=== PATIENT | female | born 1985 | race African-American/Black ===

== ENCOUNTER 2018-11-18 13:52 | Outpatient (CLI) | payer OTHER ==
[2018-11-18 21:06] VITALS: BP 132/85; PULSE 98; RESP 16; TEMP 98.1
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
== END 2018-11-18 16:40 | disposition home or self-care (01) ==
LOC: FBPOP 13:52
PROVIDERS: ATTEND Obstetrics & Gynecology
DX: O26.893 Other specified pregnancy related conditions, third trimester (principal); Z3A.37 37 weeks gestation of pregnancy
CPT/HCPCS: 59025; G0463; 99213

== ENCOUNTER 2018-11-30 07:51 | Inpatient (IN) | payer OTHER ==
[2018-11-25 14:42] VITALS: BMI 58.1
[2018-11-30 08:07] LABS: Glucose,Whole Blood 84 mg/dL (75-99)
[2018-11-30] MEDS ORDERED: CITRIC ACID-SODIUM CITRATE 15 ML CUP PO ONE (08:11)
[2018-11-30] MEDS ORDERED: LACTATED RINGERS 1,000 ML IV ONE (08:11)
[2018-11-30] MEDS ORDERED: CLINDAMYCIN 900 MG in DEXTROSE 5% IN WATER 50 ML IVPB STA ×2 (08:22)
[2018-11-30 08:38] LABS: Basophils # (A) 0.1 k/uL (0-0.2); Basophils % (A) 1 %; Eosinophils # (A) 0.2 k/uL (0-0.7); Eosinophils % (A) 2 %; HCT 36.3 % (34.0-46.0); HGB 12.3 gm/dL (11.4-16.0); Lymphocytes # (A) 1.2 k/uL (1.0-4.8); Lymphocytes % (A) 13 %; MCH 29.1 pg (25.0-35.0); MCV 85.5 fL (80.0-100.0); Mean Platelet Volume 9.1; Monocytes # (A) 0.4 k/uL (0-1.0); Monocytes % (A) 4 %; Neutrophils # (A) 7.8 k/uL (1.3-7.7); Neutrophils % (A) 81 %; Platelet Count 207 k/uL (150-450); RBC 4.25 m/uL (3.80-5.40); RDW 15.3 % (11.5-15.5); WBC 9.6 k/uL (3.8-10.6)
[2018-11-30] MEDS ORDERED: NALBUPHINE 10 MG/ML (1 ML AMP) ONE (10:38)
[2018-11-30] MEDS ORDERED: ONDANSETRON 4 MG/2 ML VIAL ONE (10:38)
[2018-11-30] MEDS ORDERED: OXYTOCIN 10 UNIT/ML 1 ML VIAL ONE (10:38)
[2018-11-30] MEDS ORDERED: MORPHINE SULFATE (PF) 0.3 MG/0.3 ML SYR ONE (10:38)
[2018-11-30] MEDS ORDERED: LANOLIN CREAM 5 GM TUBE TOPICAL PRN (12:09)
[2018-11-30] MEDS ORDERED: KETOROLAC 30 MG/ML 1 ML VIAL IVP PRN (12:09)
[2018-11-30] MEDS ORDERED: diphenhydrAMINE 25 MG CAP PO PRN (12:09)
[2018-11-30] MEDS ORDERED: diphenhydrAMINE 50 MG CAP PO PRN (12:09)
[2018-11-30] MEDS ORDERED: ZOLPIDEM 5 MG TAB PO PRN (12:09)
[2018-11-30] MEDS ORDERED: NALOXONE 0.4 MG/ML 1 ML VIAL IV PRN (12:09)
[2018-11-30] MEDS ORDERED: ONDANSETRON 4 MG/2 ML VIAL IVP PRN (12:09)
[2018-11-30] MEDS ORDERED: ACETAMINOPHEN TAB 325 MG TAB PO PRN (12:09)
[2018-11-30] MEDS ORDERED: METOCLOPRAMIDE 5 MG/ML 2 ML VIAL IVP PRN (12:09)
[2018-11-30] MEDS ORDERED: diphenhydrAMINE 50 MG/ML 1 ML VIAL IVP PRN (12:09)
[2018-11-30] MEDS ORDERED: HYDROcodone/APAP 7.5-325MG 1 EACH TAB PO PRN (12:09)
[2018-11-30] MEDS ORDERED: HYDROcodone/APAP 5-325MG 1 EACH TAB PO PRN (12:09)
[2018-11-30] MEDS ORDERED: OXYTOCIN 20 UNITS/1000 ML NS 1,000 ML IV SCH (12:15)
--- NOTE | 2018-11-30 12:18 | P.HPOB ---
History of Present Illness H&P Date: 11/30/18 Chief Complaint: 39+ weeks, previous , IDDM, macrosomia The patient is a 33-year-old 4 para 3003 with 2 previous term vaginal deliveries followed by a delivery for unstable lie resulting in breech presentation during labor having been vertex early in the process. During this and all of her other pregnancies, she has been insulin-dependent with diabetes. She reported good sugar control but, when her sugar logs were actually examined, was found to have fairly irregular to poor control at best. testing has been reassuring throughout the . She underwent growth ultrasound at approximately 35-36 weeks at which time the estimated weight was approximately 4100 g. Given the patient's morbid obesity as well as insulin-dependent diabetes and suspected pedal macrosomia all along with a history of previous section, the recommendation was made to proceed with repeat section to which the patient agreed. Group B strep status is positive. On labor and delivery, all signs reassuring. Obstetrical history: 4 para 3003 with 2 term vaginal deliveries followed by a term section. All pregnancies have been complicated by diabetes. Current statistics are listed in history present illness. EDC of 12/07/2018 was established by 9 week ultrasound. Laboratory workup demonstrates a blood type of O+ with a negative antibody screen. Rubella status is immune. Remainder of laboratory workup was within normal limits. The patient is a known diabetic and did not therefore undergoing any diabetic testing. Group B strep status is positive. Gynecologic history: Unremarkable with no history of any infections to include STDs. Review of Systems Review of systems is confined to history of present illness. Past Medical History Past Medical History: Asthma, Diabetes Mellitus, Thyroid Disorder History of Any Multi-Drug Resistant Organisms: None Reported Past Surgical History: Section Additional Past Surgical History / Comment(s): BMT CHILD Past Anesthesia/Blood Transfusion Reactions: No Reported Reaction Past Psychological History: Anxiety, Depression Smoking Status: Never smoker Past Alcohol Use History: None Reported Past Drug Use History: None Reported - Past Family History Mother Family Medical History: Cancer Medications and Allergies Home Medications Medication Instructions Recorded Confirmed Type Levothyroxine Sodium [Synthroid] 25 mcg PO DAILY 10/10/15 11/30/18 History Pnv,Calcium 72/Iron/Folic Acid 1 tab PO DAILY 10/10/15 11/30/18 History [ Plus Tablet] Albuterol Sulfate [Proair Hfa] 2 puff INHALATION DAILY PRN 11/25/18 11/25/18 H istory Calcium Carbonate/Vitamin D3 1 each PO DAILY 11/25/18 11/30/18 History [Calcium 500-Vit D3 600 Tablet] Insulin Glargine,Hum.rec.anlog 40 unit SQ HS 11/25/18 11/30/18 History [Basaglar Kwikpen U-100] Insulin Lispro [Admelog] 100 unit SQ Q4H PRN MDD TO SCALE 11/25/18 11/30/18 Hi story Loratadine [Claritin] 10 mg PO DAILY 11/25/18 11/30/18 History Sertraline [Zoloft] 200 mg PO DAILY 11/25/18 11/30/18 History Stool Softener 1 each PO DAILY 11/25/18 History Allergies Allergy/AdvReac Type Severity Reaction Status Date / Time amoxicillin Allergy Itching Verified 11/30/18 08:07 Penicillins Allergy Itching Verified 11/30/18 08:07 Sulfa (Sulfonamide Allergy Swelling Verified 11/30/18 08:07 Antibiotics) lactose AdvReac Nausea & Verified 11/30/18 08:07 Vomiting & Diarrhea steri strips AdvReac Itching Uncoded 11/30/18 08:07 Exam Vital Signs Temp Pulse Resp BP Pulse Ox 11/30/18 12:01 83 16 133/74 98 11/30/18 11:46 96.8 F L 91 16 133/74 98 So 33-year-old 4 para 3003 morbidly obese woman in no acute distress. Her heart has a regular rhythm and rate without murmur. Her lungs are clear to auscultation bilaterally in all werner. Her abdomen is obese, gravid, has normal active bowel sounds, soft, nontender, without any palpable masses aside from uterine fundus. Her extremities are without any cyanosis, clubbing, or edema and are nontender to palpation bilaterally. Digital cervical examination is deferred. Results Result Diagrams: 11/30/18 08:10 Abnormal Lab Results - Last 24 Hours (Table) 11/30/18 Range/Units 08:10 Neutrophils # 7.8 H (1.3-7.7) k/uL Assessment and Plan (1) Term Current Visit: Yes Status: Acute Code(s): Z34.90 - ENCNTR FOR SUPRVSN OF NORMAL , UNSP, UNSP TRIMESTER SNOMED Code(s): 49850721 (2) Previous section Current Visit: Yes Status: Acute Code(s): Z98.891 - HISTORY OF UTERINE SCAR FROM PREVIOUS SURGERY SNOMED Code(s): 714089260 (3) macrosomia in Current Visit: Yes Status: Acute Code(s): O36.60X0 - MATERNAL CARE FOR EXCESS GROWTH, UNSP TRIMESTER, UNSP SNOMED Code(s): 33528944 (4) Insulin dependent diabetes mellitus Current Visit: Yes Status: Acute Code(s): E11.9 - TYPE 2 DIABETES MELLITUS WITHOUT COMPLICATIONS SNOMED Code(s): 09410083 Plan: Given all the risk factors and the estimated weight at 36 weeks of perhaps as much as 4100 g, the decision was made to proceed to the operating room for repeat low transverse section. Risks and complications the procedure been thoroughly discussed and she has agreed to proceed.
--- NOTE | 2018-11-30 12:25 | P.OP ---
Date of Procedure: 11/30/18 Preoperative Diagnosis: #1. 38-6/7 weeks, previous section #2. Insulin dependent diabetes #3. Suspected macrosomia Postoperative Diagnosis: Same Procedure(s) Performed: #1. Repeat low transverse section Anesthesia: spinal Surgeon: Hari George Open Claims Representative #1: Marva Osborne Estimated Blood Loss (ml): 600 IV fluids (ml): 1,800 Urine output (ml): 400 Pathology: other (Placenta) Condition: stable Disposition: floor Operative Findings: The patient's maternal wall thickness was approximately 12-15 cm in depth. There was a fairly significant amount of scarring both through all of the subcutaneous tissues and at the level of the fascia. She was ultimately delivered of a viable 8 lbs. 15 oz. baby boy with Apgars of 8 at 1 minute and 9 at 5 minutes. The placenta was delivered manually, intact, and grossly normal with a grossly normal three-vessel cord. The uterus, tubes, and ovaries were normal to inspection. Description of Procedure: The patient was prepped and draped in usual fashion after spinal anesthesia was administered by the anesthesiologist. A Pfannenstiel incision was made through pre-existing scar and extended into the abdominal cavity with moderate difficulty secondary to both the depth of the incision at approximately 15 cm of maternal abdominal wall depth as well as ongoing scarring through the level of the fascia and rectus muscles. Once the abdomen had been entered, an Narciso self-retaining retractor was placed in standard fashion. The bladder peritoneum was noted to be somewhat elevated and was therefore incised and reflected distally. A 2 cm incision was made in the transverse plane of the lower uterine segment to enter the uterus at which time clear fluid was noted. There was a fairly significant amount fluid as well. The incision was extended in both directions using the bandage scissors. The head was delivered up and through the incision where the nose and mouth were thoroughly suctioned. There was a nuchal cord 2. The fetus was delivered onto the field where the cord was doubly clamped, cut, and the passed resuscitative measures with weight and Apgars as noted above. A segment of cord was doubly clamped, cut, and set aside should cord gases become necessary. The placenta was delivered manually and intact as noted above. The uterus was exteriorized and the interior cavity the uterus swept of any remaining placental or membranous fragments. The margins of the incision were grasped with Walter clamps and the incision closed in 2 layers. The first layer was a running locking stitch of 0 chromic catgut followed by a running imbricating stitch of 0 chromic catgut, each from margin to margin. Hemostasis appeared to be excellent. The posterior cul-de-sac had been suctioned with a guard and the uterine and ovarian findings were normal as noted above. The uterus was replaced in the abdominal cavity and the gutters swept of any remaining blood, fluid, or clot. The incision was reexamined and any small points of bleeding made hemostatic with the Bovie. The layer of muscles was then examined and made hemostatic with the Bovie as well. The fascia was closed with 2 running stitches of 0 Vicryl proceeding from lateral margins to the midpoint. The subcutaneous tissues were irrigated, made hemostatic with the Bovie, and reapproximated with a running stitch of 30 plain catgut. The skin was reapproximated with regular surgical rodrigo. Estimated blood loss for the case was approximately 600 mL. There are no complications aside from the difficulty ascribed by the patient's abdominal habitus and scarring. All sponge, instrument, needle counts were correct. The patient tolerated the procedure well and proceeded to the recovery room in stable co ndition. Both mother and infant are resting comfortably in recovery.
[2018-11-30] MEDS: SENNOSIDES-DOCUSATE SODIUM 1 EACH TAB PO SCH (20:25)
[2018-11-30] MEDS: LACTATED RINGERS 1,000 ML IV SCH (20:48)
[2018-11-30] MEDS: diphenhydrAMINE 50 MG/ML 1 ML VIAL IVP PRN (21:41)
--- NOTE | 2018-12-01 07:01 | P.PN ---
Progress Note - Text Progress Note Date: 12/01/18 Postoperative day 1 status post section under spinal anesthesia, and i ntrathecal morphine given for postoperative analgesia, patient doing well, there is no anesthesia related complications, Patient had no headache, vital signs stable , Assessment and plan= postop day 1 status post , doing well there is no anesthesia related complication.
[2018-12-01 07:16] LABS: Basophils % (A) 0 %; Eosinophils # (A) 0.1 k/uL (0-0.7); Eosinophils % (A) 1 %; HCT 34.7 % (34.0-46.0); HGB 11.7 gm/dL (11.4-16.0); Lymphocytes # (A) 0.7 k/uL (1.0-4.8); Lymphocytes % (A) 7 %; MCH 29.4 pg (25.0-35.0); MCHC 33.9 g/dL (31.0-37.0); MCV 86.9 fL (80.0-100.0); Mean Platelet Volume 9.5; Monocytes # (A) 0.4 k/uL (0-1.0); Monocytes % (A) 4 %; Neutrophils # (A) 8.6 k/uL (1.3-7.7); Neutrophils % (A) 87 %; Platelet Count 175 k/uL (150-450); RBC 3.99 m/uL (3.80-5.40); RDW 15.5 % (11.5-15.5); WBC 9.9 k/uL (3.8-10.6)
[2018-12-01] MEDS: SENNOSIDES-DOCUSATE SODIUM 1 EACH TAB PO SCH ×2 (08:10→20:13)
--- NOTE | 2018-12-01 08:48 | P.PNOBGPC ---
Subjective - Subjective Patient reports: Reports appetite normal, Reports voiding normally, Reports pain well controlled, Reports ambulating normally : doing well Objective - Vital Signs Latest vital signs: Vital Signs Temp Pulse Resp BP Pulse Ox 12/01/18 08:00 98.4 F 100 18 140/87 98 12/01/18 04:00 98 F 105 H 16 125/70 98 12/01/18 00:00 98.2 F 107 H 16 126/70 97 11/30/18 20:00 98 F 102 H 15 128/78 98 11/30/18 16:00 98.5 F 92 18 139/78 98 11/30/18 13:46 97.0 F L 81 16 139/81 98 11/30/18 13:16 87 16 129/69 98 11/30/18 12:46 82 16 132/70 98 11/30/18 12:31 78 16 128/68 98 11/30/18 12:16 75 16 129/72 98 11/30/18 12:01 83 16 132/72 98 11/30/18 11:46 96.8 F L 91 16 133/74 98 Intake and Output 11/30/18 12/01/18 12/01/18 22:59 06:59 14:59 Output Total 600 600 Balance -600 -600 Output: Urine 600 600 Uretheral (Garnica) 400 Other: # Voids 1 2 - Exam Extremities: Present: normal Abdomen: Present: normal appearance, soft. Absent: distention, tenderness Incision: Present: normal, dry, intact Uterus: Present: normal, firm - Labs Labs: Abnormal Lab Results - Last 24 Hours (Table) 12/01/18 Range/Units 06:54 Neutrophils # 8.6 H (1.3-7.7) k/uL Lymphocytes # 0.7 L (1.0-4.8) k/uL Assessment and Plan (1) Term Current Visit: Yes Status: Acute Code(s): Z34.90 - ENCNTR FOR SUPRVSN OF NORMAL , UNSP, UNSP TRIMESTER SNOMED Code(s): 00741446 (2) Previous section Current Visit: Yes Status: Acute Code(s): Z98.891 - HISTORY OF UTERINE SCAR FROM PREVIOUS SURGERY SNOMED Code(s): 581942128 (3) macrosomia in Current Visit: Yes Status: Acute Code(s): O36.60X0 - MATERNAL CARE FOR EXCESS GROWTH, UNSP TRIMESTER, UNSP SNOMED Code(s): 70406705 (4) Insulin dependent diabetes mellitus Current Visit: Yes Status: Acute Code(s): E11.9 - TYPE 2 DIABETES MELLITUS WITHOUT COMPLICATIONS SNOMED Code(s): 86766075 Plan: Continue routine postoperative and care. I have encouraged the patient and we'll in the hallways routinely. She certainly can shower and is already tolerating regular diet. Assuming no complications, the patient will likely be discharged home tomorrow.
[2018-12-01] MEDS: IBUPROFEN 600 MG TAB PO PRN ×2 (11:49→20:12)
[2018-12-01] MEDS: diphenhydrAMINE 50 MG/ML 1 ML VIAL IVP PRN (11:49)
[2018-12-01] MEDS: SIMETHICONE 80 MG CHEWABLE PO PRN (20:25)
--- NOTE | 2018-12-02 07:53 | P.DS ---
Providers Date of admission: 11/30/18 07:51 Expected date of discharge: 12/02/18 Attending physician: aHri George Primary care physician: Jarrett Sanchez - Discharge Diagnosis(es) (1) Term Current Visit: Yes Status: Acute (2) Previous section Current Visit: Yes Status: Acute (3) macrosomia in Current Visit: Yes Status: Acute (4) Insulin dependent diabetes mellitus Current Visit: Yes Status: Acute Hospital Course: The patient is a 33-year-old 4 para 3003 with 2 previous vaginal deliveries followed by section for breech presentation, unstable lie during . She is admitted for repeat low transverse section secondary to insulin dependent diabetes with a history of previous section and macrosomia greater than 99th percentile with estimated weight at approximately 36 weeks of around 4100 g. She was taken the operating room where she underwent repeat low transverse section and was delivered of a viable 8 lbs. 15 oz. baby boy with Apgars of 8 at 1 minute and 9 at 5 minutes. Her postoperative course has been unremarkable with vital signs remained stable and her temperature was afebrile throughout. She was deemed stable for discharge on post operative and day #2. She was discharged home to follow-up in the office in approximately 4-5 days for staple removal, 2 weeks postop for incision check and 6 weeks postoperatively for routine recheck and visit. Discharge instructions included calling for any significantly increased bleeding or foul-smelling lochia, significantly increased fever abdominal pain, perineal complaints, breast complaints, incisional complaints, or anything else that concerned her. She is additionally instructed to have nothing in the vagina for at least 6 weeks time to include intercourse. She understood her instructions and agrees to follow up as noted above. Discharge medications included continued vitamins as she has opted to breast-feed. She additionally was provided with a prescription for [place] 5/325 mg, 1-2 by mouth every 6 hours when necessary pain, #20 dispensed with no refills. She was also intending to take [id number] analgesic pain medications as needed. Maternal blood type is O+ and rubella status is immune. Discharge hemoglobin and hematocrit were 11.7 and 34.7 respectively. Procedures: #1. Repeat low transverse section Patient Condition at Discharge: Stable Plan - Discharge Summary Discharge Rx Participant: No New Discharge Prescriptions: No Action Levothyroxine Sodium [Synthroid] 25 mcg PO DAILY Pnv,Calcium 72/Iron/Folic Acid [ Plus Tablet] 1 tab PO DAILY Sertraline [Zoloft] 200 mg PO DAILY Loratadine [Claritin] 10 mg PO DAILY Stool Softener 1 each PO DAILY Insulin Lispro [Admelog] 100 unit SQ Q4H PRN MDD TO SCALE PRN Reason: HIGH CBG Insulin Glargine,Hum.rec.anlog [Basaglar Kwikpen U-100] 40 unit SQ HS Calcium Carbonate/Vitamin D3 [Calcium 500-Vit D3 600 Tablet] 1 each PO DAILY Albuterol Sulfate [Proair Hfa] 2 puff INHALATION DAILY PRN PRN Reason: Shortness Of Breath Discharge Medication List Levothyroxine Sodium [Synthroid] 25 mcg PO DAILY 10/10/15 [History] Pnv,Calcium 72/Iron/Folic Acid [ Plus Tablet] 1 tab PO DAILY 10/10/15 [History] Albuterol Sulfate [Proair Hfa] 2 puff INHALATION DAILY PRN 11/25/18 [History] Calcium Carbonate/Vitamin D3 [Calcium 500-Vit D3 600 Tablet] 1 each PO DAILY 11/25/18 [History] Insulin Glargine,Hum.rec.anlog [Basaglar Kwikpen U-100] 40 unit SQ HS 11/25/18 [History] Insulin Lispro [Admelog] 100 unit SQ Q4H PRN MDD TO SCALE 11/25/18 [History] Loratadine [Claritin] 10 mg PO DAILY 11/25/18 [History] Sertraline [Zoloft] 200 mg PO DAILY 11/25/18 [History] Stool Softener 1 each PO DAILY 11/25/18 [History] Follow up Appointment(s)/Referral(s): Hari George MD [STAFF PHYSICIAN] - 1 Week Discharge Disposition: HOME SELF-CARE
[2018-12-02] MEDS: SENNOSIDES-DOCUSATE SODIUM 1 EACH TAB PO SCH (08:33)
[2018-12-02] MEDS: SIMETHICONE 80 MG CHEWABLE PO PRN (13:02)
[2018-12-02 18:33] VITALS: BP 146/86; PULSE 110; RESP 18; TEMP 98.7
== END 2018-12-02 18:00 | disposition home or self-care (01) | DRG 786 ==
LOC: 4FBP 07:51
PROVIDERS: ADMIT Obstetrics & Gynecology; ATTEND Obstetrics & Gynecology
PROC: 10D00Z1 Extraction of Products of Conception, Low, Open Approach (ICD-10-PCS; principal; 2018-11-30 10:00)
DX: O36.63X0 Maternal care for excessive fetal growth, third trimester, not applicable or unspecified (principal); O24.12 Pre-existing type 2 diabetes mellitus, in childbirth; O99.214 Obesity complicating childbirth; E66.01 Morbid (severe) obesity due to excess calories; O34.211 Maternal care for low transverse scar from previous cesarean delivery; O99.344 Other mental disorders complicating childbirth; O99.52 Diseases of the respiratory system complicating childbirth; J45.909 Unspecified asthma, uncomplicated; E11.9 Type 2 diabetes mellitus without complications; O99.824 Streptococcus B carrier state complicating childbirth; F32.9 Major depressive disorder, single episode, unspecified; F41.9 Anxiety disorder, unspecified; O99.284 Endocrine, nutritional and metabolic diseases complicating childbirth; O69.81X0 Labor and delivery complicated by cord around neck, without compression, not applicable or unspecified; Z37.0 Single live birth; Z3A.38 38 weeks gestation of pregnancy; Z79.4 Long term (current) use of insulin; Z79.890 Hormone replacement therapy; Z79.899 Other long term (current) drug therapy; Z88.0 Allergy status to penicillin; Z88.2 Allergy status to sulfonamides; Z88.8 Allergy status to other drugs, medicaments and biological substances; Z91.048 Other nonmedicinal substance allergy status
CPT/HCPCS: 83036; 85025; 86850; 86900; 86901; 88307

== ENCOUNTER 2018-12-07 12:21 | Emergency (ER) | payer OTHER ==
[2018-12-07] MEDS ORDERED: SODIUM CHLORIDE 0.9% 2,000 ML IV STA (12:52)
[2018-12-07] MEDS ORDERED: ONDANSETRON 4 MG/2 ML VIAL IVP STA (12:52)
--- NOTE | 2018-12-07 13:03 | ED ---
Nausea/Vomiting/Diarrhea HPI - General Chief complaint: Nausea/Vomiting/Diarrhea Stated complaint: Vomiting-c section on friday11-30-18 Time Seen by Provider: 12/07/18 12:39 Source: patient, RN notes reviewed Mode of arrival: ambulatory Limitations: no limitations - History of Present Illness Initial comments: 33-year-old female presents emergency Department with chief complaint of nausea vomiting diarrhea. Patient states that she has 1 week ago today. Patient states that she was discharged on Friday and since she's had nausea vomiting diarrhea. She states that family members were sick also but they are improved. She states that she does not feel terrible but states that she contacted her ICU STAFF NURSE who recommended her to come emergency from for evaluation. She states her diarrhea was watery she states at this point has s ubsided. Patient denies any known fever, chills, chest pain, headache or dizziness. Patient denies any dysuria hematuria. - Related Data Home Medications Medication Instructions Recorded Confirmed Levothyroxine Sodium [Synthroid] 25 mcg PO DAILY 10/10/15 11/30/18 Pnv,Calcium 72/Iron/Folic Acid 1 tab PO DAILY 10/10/15 11/30/18 [ Plus Tablet] Albuterol Sulfate [Proair Hfa] 2 puff INHALATION DAILY PRN 11/25/18 11/25/18 Calcium Carbonate/Vitamin D3 1 each PO DAILY 11/25/18 11/30/18 [Calcium 500-Vit D3 600 Tablet] Insulin Glargine,Hum.rec.anlog 40 unit SQ HS 11/25/18 11/30/18 [Basaglar Kwikpen U-100] Insulin Lispro [Admelog] 100 unit SQ Q4H PRN MDD TO SCALE 11/25/18 11/30/18 Loratadine [Claritin] 10 mg PO DAILY 11/25/18 11/30/18 Sertraline [Zoloft] 200 mg PO DAILY 11/25/18 11/30/18 Stool Softener 1 each PO DAILY 11/25/18 Previous Rx's Medication Instructions Recorded Ondansetron Odt [Zofran Odt] 4 mg PO Q8HR PRN #14 tab 12/07/18 Allergies Allergy/AdvReac Type Severity Reaction Status Date / Time amoxicillin Allergy Itching Verified 12/07/18 12:35 Penicillins Allergy Itching Verified 12/07/18 12:35 Sulfa (Sulfonamide Allergy Swelling Verified 12/07/18 12:35 Antibiotics) lactose AdvReac Nausea & Verified 12/07/18 12:35 Vomiting & Diarrhea steri strips AdvReac Itching Uncoded 12/07/18 12:35 Review of Systems ROS Statement: Those systems with pertinent positive or pertinent negative responses have been documented in the HPI. ROS Other: All systems not noted in ROS Statement are negative. Past Medical History Past Medical History: Asthma, Diabetes Mellitus, Thyroid Disorder History of Any Multi-Drug Resistant Organisms: None Reported Past Surgical History: Section Additional Past Surgical History / Comment(s): BMT CHILD Past Anesthesia/Blood Transfusion Reactions: No Reported Reaction Past Psychological History: Anxiety, Depression Smoking Status: Never smoker Past Alcohol Use History: None Reported Past Drug Use History: None Reported - Past Family History Mother Family Medical History: Cancer General Exam General appearance: alert, in no apparent distress Head exam: Present: atraumatic, normocephalic, normal inspection Eye exam: Present: normal appearance, PERRL, EOMI. Absent: scleral icterus, conjunctival injection, periorbital swelling ENT exam: Present: normal exam, normal oropharynx, mucous membranes moist Neck exam: Present: normal inspection, full ROM. Absent: tenderness, meningismus, lymphadenopathy Respiratory exam: Present: normal lung sounds bilaterally. Absent: respiratory distress, wheezes, rales, rhonchi, stridor Cardiovascular Exam: Present: regular rate, normal rhythm, normal heart sounds. Absent: systolic murmur, diastolic murmur, rubs, gallop, clicks GI/Abdominal exam: Present: soft, normal bowel sounds. Absent: distended, tenderness, guarding, rebound, rigid Neurological exam: Present: alert Skin exam: Present: warm, dry, intact, normal color. Absent: rash Course Vital Signs 12/07/18 12:32 Temperature 98.2 F Pulse Rate 93 Respiratory 18 Rate Blood Pressure 140/99 O2 Sat by Pulse 96 Oximetry Medical Decision Making - Medical Decision Making 33-year-old female presents emergency department for nausea vomiting diarrhea. Patient's labwork is essentially unremarkable other than blood noted in the urine to this is from recent delivery. Patient did have IV hydration, given antiemetics. Patient will be discharged with antiemetics. - Lab Data Result diagrams: 12/07/18 12:55 12/07/18 12:55 Lab Results 12/07/18 12/07/18 12/07/18 Range/Units 12:55 12:55 12:55 WBC 8.7 (3.8-10.6) k/uL RBC 4.61 (3.80-5.40) m/uL Hgb 13.3 (11.4-16.0) gm/dL Hct 39.4 (34.0-46.0) % MCV 85.5 (80.0-100.0) fL MCH 28.8 (25.0-35.0) pg MCHC 33.7 (31.0-37.0) g/dL RDW 14.8 (11.5-15.5) % Plt Count 341 (150-450) k/uL Neutrophils % 76 % Lymphocytes % 15 % Monocytes % 4 % Eosinophils % 2 % Basophils % 2 % Neutrophils # 6.6 (1.3-7.7) k/uL Lymphocytes # 1.3 (1.0-4.8) k/uL Monocytes # 0.4 (0-1.0) k/uL Eosinophils # 0.2 (0-0.7) k/uL Basophils # 0.1 (0-0.2) k/uL Sodium 139 (137-145) mmol/L Potassium 4.3 (3.5-5.1) mmol/L Chloride 104 (98-107) mmol/L Carbon Dioxide 25 (22-30) mmol/L Anion Gap 10 mmol/L BUN 10 (7-17) mg/dL Creatinine 0.65 (0.52-1.04) mg/dL Est GFR (CKD-EPI)AfAm >90 (>60 ml/min/1.73 sqM) Est GFR (CKD-EPI)NonAf >90 (>60 ml/min/1.73 sqM) Glucose 120 H (74-99) mg/dL Calcium 8.9 (8.4-10.2) mg/dL Total Bilirubin 0.7 (0.2-1.3) mg/dL AST 18 (14-36) U/L ALT 22 (9-52) U/L Alkaline Phosphatase 128 H (38-126) U/L Total Protein 7.1 (6.3-8.2) g/dL Albumin 3.6 (3.5-5.0) g/dL Amylase 31 (30-110) U/L Lipase 53 (23-300) U/L Urine Color Yellow Urine Appearance Cloudy H (Clear) Urine pH 6.0 (5.0-8.0) Ur Specific [place] 1.017 (1.001-1.035) Urine Protein Trace H (Negative) Urine Glucose (UA) Negative (Negative) Urine Ketones Negative (Negative) Urine Blood Large H (Negative) Urine Nitrite Negative (Negative) Urine Bilirubin Negative (Negative) Urine Urobilinogen <2.0 (<2.0) mg/dL Ur Leukocyte Esterase Large H (Negative) Urine RBC >182 H (0-5) /hpf Urine WBC 23 H (0-5) /hpf Ur Squamous Epith Cells 1 (0-4) /hpf Urine Bacteria Occasional H (None) /hpf Urine Mucus Few H (None) /hpf Disposition Clinical Impression: Nausea vomiting and diarrhea Disposition: HOME SELF-CARE Condition: Stable Instructions (If sedation given, give patient instructions): Acute Nausea and Vomiting (ED), Acute Diarrhea (ED) Additional Instructions: Please return to the Emergency Department if symptoms worsen or any other concerns. Prescriptions: Ondansetron Odt [Zofran Odt] 4 mg PO Q8HR PRN #14 tab PRN Reason: Nausea Is patient prescribed a controlled substance at d/c from ED?: No Referrals: Jarrett Sanchez MD [Primary Care Provider] - 1-2 days Time of Disposition: 13:54
[2018-12-07 13:17] LABS: Basophils # (A) 0.1 k/uL (0-0.2); Basophils % (A) 2 %; Eosinophils # (A) 0.2 k/uL (0-0.7); Eosinophils % (A) 2 %; HCT 39.4 % (34.0-46.0); HGB 13.3 gm/dL (11.4-16.0); Lymphocytes # (A) 1.3 k/uL (1.0-4.8); Lymphocytes % (A) 15 %; MCH 28.8 pg (25.0-35.0); MCHC 33.7 g/dL (31.0-37.0); MCV 85.5 fL (80.0-100.0); Mean Platelet Volume 7.8; Monocytes # (A) 0.4 k/uL (0-1.0); Monocytes % (A) 4 %; Neutrophils # (A) 6.6 k/uL (1.3-7.7); Neutrophils % (A) 76 %; Platelet Count 341 k/uL (150-450); RBC 4.61 m/uL (3.80-5.40); RDW 14.8 % (11.5-15.5); WBC 8.7 k/uL (3.8-10.6)
[2018-12-07 13:24] LABS: ALT 22 U/L (9-52); AST 18 U/L (14-36); African American GFR (CKD) >90 (>60 ml/min/1.73 sqM); Albumin 3.6 g/dL (3.5-5.0); Alkaline Phosphatase 128 U/L (38-126); Amylase 31 U/L (30-110); Anion Gap 10 mmol/L; Blood Urea Nitrogen 10 mg/dL (7-17); Calcium 8.9 mg/dL (8.4-10.2); Carbon Dioxide 25 mmol/L (22-30); Chloride 104 mmol/L (98-107); Glucose 120 mg/dL (74-99); Potassium 4.3 mmol/L (3.5-5.1); Sodium 139 mmol/L (137-145); Total Bilirubin 0.7 mg/dL (0.2-1.3); Total Protein 7.1 g/dL (6.3-8.2)
[2018-12-07 13:25] LABS: Appearance,Urine Cloudy (Clear); Bilirubin,Urine Negative (Negative); Blood,Urine Large (Negative); Color,Urine Yellow; Glucose,Urine (UA) Negative (Negative); Ketones,Urine Negative (Negative); Leukocyte Esterase,Urine Large (Negative); Nitrite,Urine Negative (Negative); Protein,Urine Trace (Negative); Specific Gravity,Urine 1.017 (1.001-1.035); Urobilinogen,Urine <2.0 mg/dL (<2.0)
[2018-12-07 13:26] LABS: Bacteria,Urine Occasional /hpf; Mucus,Urine Few /hpf; RBC,Urine >182 /hpf (0-5); Squamous Epithelial Cell,Urine 1 /hpf (0-4); WBC,Urine 23 /hpf (0-5)
[2018-12-07 14:16] VITALS: BP 136/70; PULSE 98; RESP 16; TEMP 98.3
== END 2018-12-07 14:05 | disposition home or self-care (01) ==
LOC: EC 12:21
DX: R11.2 Nausea with vomiting, unspecified (principal); R19.7 Diarrhea, unspecified; J45.909 Unspecified asthma, uncomplicated; E11.9 Type 2 diabetes mellitus without complications; F41.9 Anxiety disorder, unspecified; F32.9 Major depressive disorder, single episode, unspecified; E07.9 Disorder of thyroid, unspecified; Z79.890 Hormone replacement therapy; Z79.4 Long term (current) use of insulin; Z79.899 Other long term (current) drug therapy; Z88.0 Allergy status to penicillin; Z88.2 Allergy status to sulfonamides; Z91.011 Allergy to milk products; Z91.048 Other nonmedicinal substance allergy status
CPT/HCPCS: 36415; 80053; 82150; 83690; 85025; 81001; 99284; 96374; 96361; J2405

== ENCOUNTER → 2019-02-05 | Outpatient (CLI) | payer OTHER ==
--- NOTE | 2019-02-05 09:55 | XR ---
EXAMINATION TYPE: XR wrist complete LT DATE OF EXAM: 02/05/2019 CLINICAL HISTORY: pain TECHNIQUE: Frontal, lateral and oblique images of the left wrist are obtained. COMPARISON: None. FINDINGS: There is no acute fracture/dislocation evident. The joint spaces appear within normal cantu its. The overlying soft tissue appears unremarkable. IMPRESSION: There is no acute fracture or dislocation seen. ICD 10 NO FRACTURE, INITIAL EVALUATION
== END ==
LOC: RADXRMAIN 09:35
PROVIDERS: ATTEND Family Medicine
DX: M25.532 Pain in left wrist (principal)

== ENCOUNTER → 2019-06-08 | Outpatient (CLI) | payer OTHER ==
--- NOTE | 2019-06-08 12:22 | US ---
EXAMINATION TYPE: US gallbladder DATE OF EXAM: 06/08/2019 COMPARISON: None CLINICAL HISTORY: R10.84 Generalized abdominal pain. Pt states generalized ABD pain EXAM MEASUREMENTS: Liver Length: 18.9 cm Gallbladder Wall: 0.3 cm CBD: 0.5 cm Right Kidney: 9.5 x 3.6 x 3.9 cm Severely, morbidly obese pt, very limited study Pancreas: Obscured by bowel gas Liver: Unable to penetrate/ limited views Gallbladder: Possibly distended margins, no suspicious dilatation, lumen appeared clear Evidence for sonographic Valladares's sign: No CBD: wnl Right Kidney: No evidence of hydro, limited views Suboptimal study due to patient's marked large body habitus. Visualized liver is heterogeneously hype rechoic. Significant portion of liver is suboptimally evaluated. Evaluation for focal masses suboptim al. Visualized portion of the gallbladder shows no shadowing mobile gallstones. IMPRESSION: Suboptimal study without shadowing mobile gallstones or ultrasound evidence for acute cho lecystitis. Probable marked fatty infiltration of liver.
== END | disposition home or self-care (01) ==
LOC: RADUSWWP 11:16
PROVIDERS: ATTEND Family Medicine
DX: R10.84 Generalized abdominal pain (principal); Z88.0 Allergy status to penicillin; Z88.2 Allergy status to sulfonamides; Z88.1 Allergy status to other antibiotic agents
CPT/HCPCS: 76705

== ENCOUNTER → 2020-10-26 | Outpatient (CLI) | payer OTHER ==
[2020-10-26 23:18] LABS: C Reactive Protein 4.2 mg/dL (0.0-0.8)
[2020-10-27 03:50] LABS: DNA Double-Stranded NEGATIVE (NEGATIVE)
== END | disposition home or self-care (01) ==
LOC: LABWHC1 10:02
PROVIDERS: ATTEND Family Medicine
DX: R41.3 Other amnesia (principal)
CPT/HCPCS: 36415; 85652; 86038; 86140; 86162; 86225; 86235; 86431

== ENCOUNTER → 2022-04-12 | Outpatient (CLI) | payer OTHER ==
--- NOTE | 2022-04-12 07:11 | XR ---
EXAMINATION TYPE: XR lumbar spine 2 or 3V DATE OF EXAM: 04/12/2022 CLINICAL HISTORY: [id number], lower back pain TECHNIQUE: Three views of the lumbar spine are submitted. COMPARISON: Lumbosacral spine radiograph 11/22/2020 FINDINGS: There are 5 lumbar type vertebral bodies identified. The lumbar spine shows satisfactory alignment w ithout evidence of acute fracture or dislocation. Mild retrolisthesis of L5 on S1. Mild degenerative disc space narrowing at L5-S1 with endplate sclerosis. The overlying soft tissue appears unremarkabl e. IMPRESSION: 1. No acute fracture or dislocation is seen in the lumbar spine. 2. Mild degenerative disease at L5-S1 redemonstrated.
== END | disposition home or self-care (01) ==
LOC: RADXRMAIN 06:45
PROVIDERS: ATTEND Nurse Practitioner Family
DX: M51.17 Intervertebral disc disorders with radiculopathy, lumbosacral region (principal)
CPT/HCPCS: 72100

== ENCOUNTER → 2022-07-03 | Outpatient (CLI) | payer OTHER ==
--- NOTE | 2022-07-03 09:39 | NM ---
EXAMINATION TYPE: NM hepatobiliary w EF DATE OF EXAM: 07/03/2022 COMPARISON: Gallbladder ultrasound 06/08/2019 HISTORY: Abdominal pain, changes in appetite, heartburn, nausea, constipation, rectal bleeding TECHNIQUE: After the intravenous administration of 4.9 mCi Tc 99m Mebrofenin hepatobiliary scintigrap hy is performed. Immediate images post injection. FINDINGS: There is satisfactory initial accumulation of tracer by the liver. The gallbladder is visualized wit hin 6 minutes. The small bowel activity is noted within 8 minutes. At one hour 8 ounces of oral ens ure plus is given to mimic CCK and gallbladder ejection fraction is calculated at 77 %, in the normal range. Therefore there is no scintigraphic evidence of cystic or common bile duct obstruction to rose ggest acute cholecystitis or gallbladder dyskinesia. IMPRESSION: Exam is within normal limits.
== END | disposition home or self-care (01) ==
LOC: RADNMMAIN 06:44
PROVIDERS: ATTEND Family Medicine
DX: R14.2 Eructation (principal); R12 Heartburn; K62.5 Hemorrhage of anus and rectum
CPT/HCPCS: 78226; A9537

== ENCOUNTER 2022-09-30 22:57 | Emergency (ER) | payer OTHER ==
--- NOTE | 2022-09-30 23:00 | ED ---
General Adult HPI - General Source: RN notes reviewed, old records reviewed <Huma Escobedo - Last Filed: 09/30/22 22:59> <Levar Lepe - Last Filed: 10/01/22 07:39> - General Stated complaint: Right side pain Time Seen by Provider: 09/30/22 22:59 - History of Present Illness Initial comments: 37-year-old -[place] female with no significant past medical history presents the emergency department with right-sided low back pain with sudden onset earlier this afternoon. Reports accompanying nausea (Huma Escobedo) Patient is a 37-year-old female who presents emergency Department complaining of right flank pain and right low back pain. States it has been ongoing for a few days with right-sided starting more recently. States she has had some left- sided pain a few days ago. Endorses urinary frequency. Denies hematuria. Denies nausea or vomiting. Denies diarrhea. Describes the pain as a shooting, sharp pain. No history of kidney stones. No constipation. No chest pain or shortness of breath. No fevers. No sick contacts. Presents for further evaluation at this time. Patient initially was worked up in triage. She was a quick note. I evaluated her when she was placed in room 29. (Levar Lepe) - Related Data Home Medications Medication Instructions Recorded Confirmed Levothyroxine Sodium [Synthroid] 25 mcg PO DAILY 10/10/15 12/07/18 Pnv,Calcium 72/Iron/Folic Acid 1 tab PO DAILY 10/10/15 12/07/18 [ Plus Tablet] Albuterol Sulfate [Proair Hfa] 2 puff INHALATION RT-QID PRN 11/25/18 12/07/18 Calcium Carbonate/Vitamin D3 1 tab PO DAILY 11/25/18 12/07/18 [Calcium 500-Vit D3 600 Tablet] Loratadine [Claritin] 10 mg PO DAILY 11/25/18 12/07/18 Sertraline [Zoloft] 200 mg PO DAILY 11/25/18 12/07/18 Docusate [Colace] 100 mg PO DAILY 12/07/18 12/07/18 Previous Rx's Medication Instructions Recorded Ondansetron Odt [Zofran Odt] 4 mg PO Q8HR PRN #14 tab 12/07/18 Ciprofloxacin HCl [Cipro] 500 mg PO Q12HR 7 Days #14 tab 10/01/22 Allergies Allergy/AdvReac Type Severity Reaction Status Date / Time amoxicillin Allergy Itching Verified 09/30/22 23:14 Penicillins Allergy Itching Verified 09/30/22 23:14 Sulfa (Sulfonamide Allergy Swelling Verified 09/30/22 23:14 Antibiotics) lactose AdvReac Nausea & Verified 09/30/22 23:14 Vomiting & Diarrhea steri strips AdvReac Itching Uncoded 09/30/22 23:14 Review of Systems ROS Other: All systems not noted in ROS Statement are negative. <Huma Escobedo - Last Filed: 09/30/22 22:59> ROS Other: All systems not noted in ROS Statement are negative. <Levar Lepe - Last Filed: 10/01/22 07:39> ROS Statement: Those systems with pertinent positive or pertinent negative responses have been documented in the HPI. Review of Systems: CONST: Denies fever EYES: Denies blurry vision ENT: Denies nasal congestion C/V: Denies Chest pain RESP: Denies shortness of breath GI: Endorses abdominal pain : Denies dysuria SKIN: Denies rash. MSK: Denies joint pain. NEURO: Denies headache . (Levar Lepe) Past Medical History Past Medical History: Asthma, Diabetes Mellitus, Thyroid Disorder History of Any Multi-Drug Resistant Organisms: None Reported Past Surgical History: Section Additional Past Surgical History / Comment(s): BMT CHILD Past Anesthesia/Blood Transfusion Reactions: No Reported Reaction Past Psychological History: Anxiety, Depression Past Alcohol Use History: None Reported Past Drug Use History: None Reported - Past Family History Mother Family Medical History: Cancer <Huma Escobedo - Last Filed: 09/30/22 22:59> General Exam <Huma Escobedo - Last Filed: 09/30/22 22:59> <Levar Lepe - Last Filed: 10/01/22 07:39> - General Exam Comments Initial Comments: Visual Physical Exam Vital signs reviewed General: Well-appearing, nontoxic, no acute distress. Head: Normocephalic, atraumatic Eyes: PERRLA, EOMI ENT: Airway patent Chest: Nonlabored breathing Skin: No visual rash, normal skin tone Neuro: Alert and oriented 3 Musculoskeletal: No gross abnormalities (Huma Escobedo) General: Appears in mild discomfort secondary to abdominal pain. HEAD: Normal with no signs of head trauma. EYES: PERRLA, EOMI, conjunctiva normal, no discharge. ENT: Hearing grossly intact, normal oropharynx. RESPIRATORY: Clear breath sounds bilaterally. No wheezes, rales, or rhonchi. C/V: Regular rate and rhythm. S1 and S2 auscultated, no edema, peripheral puls es 2+ and intact throughout ABD: Abdomen is soft, nondistended. Tender to palpation in the right flank to the right CVA. No guarding. No rebound tenderness. No peritoneal signs. EXT: Normal range of motion, no obvious deformity SKIN: No rashes or lesions observed on exposed skin. NEURO: Alert and oriented 4. (Levar Lepe) Course Vital Signs 09/30/22 10/01/22 23:12 05:00 Temperature 98.4 F 98.1 F Pulse Rate 97 84 Respiratory 18 16 Rate Blood Pressure 150/98 139/81 O2 Sat by Pulse 100 99 Oximetry Medical Decision Making - Lab Data Result diagrams: 10/01/22 01:02 10/01/22 01:02 <Levar Lepe - Last Filed: 10/01/22 07:39> - Medical Decision Making Was pt. sent in by a medical professional or institution (BETY Lazaro, RAFTER CUTTING MACHINE OPERATOR, urgent care, hospital, or long-term...) When possible be specific @ -No Did you speak to anyone other than the patient for history (EMS, parent, family, police, friend...)? What history was obtained from this source @ -No Did you review nursing and triage notes (agree or disagree)? Why? @ -I reviewed and agree with nursing and triage notes Were old charts reviewed (outside hosp., previous admission, EMS record, old EKG, old radiological studies, urgent care reports/EKG's, long-term records)? Report findings @ -No old charts were reviewed Differential Diagnosis (chest pain, altered mental status, abdominal pain women, abdominal pain men, vaginal bleeding, weakness, fever, dyspnea, syncope, headache, dizziness, GI bleed, back pain, seizure, CVA, palpatations, mental health, musculoskeletal)? @ -Differential Abdominal Pain Women: Appendicitis, Cholecystitis, diverticulosis, ischemic bowel, pancreatitis, hepatitis, UTI, gastroenteritis, AAA, incarcerated hernia, bowel obstruction, constipation, inflammatory bowel, hepatitis, peptic ulcer disease, splenic infarction, perforated viscus, vulvitis, ovarian torsion, PID, kidney stone, pl acenta abruption, this is not meant to be an all-inclusive list EKG interpreted by me (3pts min.). @ -As above X-rays interpreted by me (1pt min.). @ -None done CT interpreted by me (1pt min.). @ -CT abdomen and pelvis negative for any obvious nephrolithiasis or ureteral lithiasis. No other obvious process. U/S interpreted by me (1pt. min.). @ -None done What testing was considered but not performed or refused? (CT, X-rays, U/S, labs)? Why? @ -None What meds were considered but not given or refused? Why? @ -None Did you discuss the management of the patient with other professionals (professionals i.e. , PA, RAFTER CUTTING MACHINE OPERATOR, lab, RT, psych nurse, foster care social worker, food and nutrition supervisor, teacher, business liaison officer, outpatient case manager)? Give summary @ -No Was smoking cessation discussed for >3mins.? @ -No Was critical care preformed (if so, how long)? @ -No Were there social determinants of health that impacted care today? How? (Homelessness, low income, unemployed, alcoholism, drug addiction, transportation, low edu. Level, literacy, decrease access to med. care, [facility], rehab)? @ -No Was there de-escalation of care discussed even if they declined (Discuss DNR or withdrawal of care, Hospice)? DNR status @ -No What co-morbidities impacted this encounter? (DM, HTN, Smoking, COPD, CAD, Cancer, CVA, ARF, Chemo, Hep., AIDS, mental health diagnosis, sleep apnea, morbid obesity)? @ -None Was patient admitted / discharged? Hospital course, mention meds given and route, prescriptions, significant lab abnormalities, going to OR and other pertinent info. @ -Based on the patient's presentation and physical exam, I'm concerned for possible intra-abdominal process for the patient this time. I evaluated the patient after workup was already started. Laboratory studies resulted in were remarkable for a mild leukocytosis of 13. Patient's urine does appear to have a UTI. Remainder of the labs are within acceptable limits. Vital signs are within acceptable limits. The patient is having flank-like pain it does seem somewhat like a kidney stone at this time. I did recommend we obtain a CT as she does have a stone she may require admission. She was in agreement this plan. She was given oral Zofran as well as oral pain medication. Long delay in obtaining CT imaging as well as the radiologist read. No evidence of kidney stones. Shows findings concerning for cystitis which does fit with the clinical picture. After the patient. Due to her having some low back pain in addition to the suprapubic abdominal pain and UTI, we will cover with Cipro for pyelonephritis. Strict return precautions were discussed. She'll receive this prior to discharge. She was in agreement with this plan. I will provide the patient with a prescription for ciprofloxacin. I instructed the patient to follow up with their PCP in the next 1-3 days. I explained that the patient should return to the emergency department if they experience any worsening symptoms. Strict return precautions were discussed with the patient. The patient expressed understanding of these instructions. I answered all questions that the patient had. The patient was discharged home in good condition with their prescriptions and follow up information. Undiagnosed new problem with uncertain prognosis? @ -No Drug Therapy requiring intensive monitoring for toxicity (Heparin, Nitro, Insulin, Cardizem)? @ -No Were any procedures done? @ -No Diagnosis/symptom? @ -UTI Acute, or Chronic, or Acute on Chronic? @ -Acute Uncomplicated (without systemic symptoms) or Complicated (systemic symptoms)? @ -Complicated Side effects of treatment? @ -none Exacerbation, Progression, or Severe Exacerbation] @ -no Poses a threat to life or bodily function? @ -no (Levar Lepe) - Lab Data Lab Results 10/01/22 10/01/22 10/01/22 Range/Units 01:02 01:02 01:02 WBC 13.2 H (3.8-10.6) k/uL RBC 4.26 (3.80-5.40) m/uL Hgb 13.3 (11.4-16.0) gm/dL Hct 38.7 (34.0-46.0) % MCV 90.8 (80.0-100.0) fL MCH 31.3 (25.0-35.0) pg MCHC 34.5 (31.0-37.0) g/dL RDW 13.5 (11.5-15.5) % Plt Count 274 (150-450) k/uL MPV 9.1 Sodium 135 L (137-145) mmol/L Potassium 4.4 (3.5-5.1) mmol/L Chloride 100 (98-107) mmol/L Carbon Dioxide 24 (22-30) mmol/L Anion Gap 11 mmol/L BUN 7 (7-17) mg/dL Creatinine 0.56 (0.52-1.04) mg/dL Est GFR (CKD-EPI)AfAm >90 (>60 ml/min/1.73 sqM) Est GFR (CKD-EPI)NonAf >90 (>60 ml/min/1.73 sqM) Glucose 238 H (74-99) mg/dL Calcium 9.4 (8.4-10.2) mg/dL Total Bilirubin 0.6 (0.2-1.3) mg/dL AST 18 (14-36) U/L ALT 19 (4-34) U/L Alkaline Phosphatase 150 H (38-126) U/L Total Protein 7.5 (6.3-8.2) g/dL Albumin 4.1 (3.5-5.0) g/dL Urine Color Yellow Urine Appearance Cloudy H (Clear) Urine pH 6.5 (5.0-8.0) Ur Specific [place] 1.014 (1.001-1.035) Urine Protein 1+ H (Negative) Urine Glucose (UA) Negative (Negative) Urine Ketones Trace H (Negative) Urine Blood Moderate H (Negative) Urine Nitrite Negative (Negative) Urine Bilirubin Negative (Negative) Urine Urobilinogen <2.0 (<2.0) mg/dL Ur Leukocyte Esterase Large H (Negative) Urine RBC 46 H (0-5) /hpf Urine WBC 91 H (0-5) /hpf Urine WBC Clumps Rare H (None) /hpf Ur Squamous Epith Cells 3 (0-4) /hpf Urine Bacteria Rare H (None) /hpf Urine Mucus Rare H (None) /hpf Urine HCG, Qual (Not Detectd) 10/01/22 Range/Units 01:02 WBC (3.8-10.6) k/uL RBC (3.80-5.40) m/uL Hgb (11.4-16.0) gm/dL Hct (34.0-46.0) % MCV (80.0-100.0) fL MCH (25.0-35.0) pg MCHC (31.0-37.0) g/dL RDW (11.5-15.5) % Plt Count (150-450) k/uL MPV Sodium (137-145) mmol/L Potassium (3.5-5.1) mmol/L Chloride (98-107) mmol/L Carbon Dioxide (22-30) mmol/L Anion Gap mmol/L BUN (7-17) mg/dL Creatinine (0.52-1.04) mg/dL Est GFR (CKD-EPI)AfAm (>60 ml/min/1.73 sqM) Est GFR (CKD-EPI)NonAf (>60 ml/min/1.73 sqM) Glucose (74-99) mg/dL Calcium (8.4-10.2) mg/dL Total Bilirubin (0.2-1.3) mg/dL AST (14-36) U/L ALT (4-34) U/L Alkaline Phosphatase (38-126) U/L Total Protein (6.3-8.2) g/dL Albumin (3.5-5.0) g/dL Urine Color Urine Appearance (Clear) Urine pH (5.0-8.0) Ur Specific [place] (1.001-1.035) Urine Protein (Negative) Urine Glucose (UA) (Negative) Urine Ketones (Negative) Urine Blood (Negative) Urine Nitrite (Negative) Urine Bilirubin (Negative) Urine Urobilinogen (<2.0) mg/dL Ur Leukocyte Esterase (Negative) Urine RBC (0-5) /hpf Urine WBC (0-5) /hpf Urine WBC Clumps (None) /hpf Ur Squamous Epith Cells (0-4) /hpf Urine Bacteria (None) /hpf Urine Mucus (None) /hpf Urine HCG, Qual Not Detected (Not Detectd) Disposition <Huma Escobedo - Last Filed: 09/30/22 22:59> Is patient prescribed a controlled substance at d/c from ED?: No Time of Disposition: 07:22 <Levar Lepe - Last Filed: 10/01/22 07:39> Clinical Impression: UTI (urinary tract infection) Disposition: HOME SELF-CARE Condition: Good Instructions (If sedation given, give patient instructions): Urinary Tract Infection in Women (DC) Prescriptions: Ciprofloxacin HCl [Cipro] 500 mg PO Q12HR 7 Days #14 tab Referrals: Yves Kyle Jr, [Primary Care Provider] - 1-2 days
[2022-10-01 01:23] LABS: HCT 38.7 % (34.0-46.0); HGB 13.3 gm/dL (11.4-16.0); MCH 31.3 pg (25.0-35.0); MCHC 34.5 g/dL (31.0-37.0); MCV 90.8 fL (80.0-100.0); Mean Platelet Volume 9.1; Platelet Count 274 k/uL (150-450); RBC 4.26 m/uL (3.80-5.40); RDW 13.5 % (11.5-15.5); WBC 13.2 k/uL (3.8-10.6)
[2022-10-01 01:32] LABS: ALT 19 U/L (4-34); AST 18 U/L (14-36); African American GFR (CKD) >90 (>60 ml/min/1.73 sqM); Albumin 4.1 g/dL (3.5-5.0); Alkaline Phosphatase 150 U/L (38-126); Anion Gap 11 mmol/L; Blood Urea Nitrogen 7 mg/dL (7-17); Calcium 9.4 mg/dL (8.4-10.2); Carbon Dioxide 24 mmol/L (22-30); Chloride 100 mmol/L (98-107); Glucose 238 mg/dL (74-99); Non-African American GFR(CKD) >90 (>60 ml/min/1.73 sqM); Potassium 4.4 mmol/L (3.5-5.1); Sodium 135 mmol/L (137-145); Total Bilirubin 0.6 mg/dL (0.2-1.3); Total Protein 7.5 g/dL (6.3-8.2)
[2022-10-01 01:38] LABS: Appearance,Urine Cloudy (Clear); Bacteria,Urine Rare /hpf; Bilirubin,Urine Negative (Negative); Blood,Urine Moderate (Negative); Color,Urine Yellow; Glucose,Urine (UA) Negative (Negative); Ketones,Urine Trace (Negative); Leukocyte Esterase,Urine Large (Negative); Mucus,Urine Rare /hpf; Nitrite,Urine Negative (Negative); PH, Urine 6.5 (5.0-8.0); Protein,Urine 1+ (Negative); RBC,Urine 46 /hpf (0-5); Specific Gravity,Urine 1.014 (1.001-1.035); Squamous Epithelial Cell,Urine 3 /hpf (0-4); Urobilinogen,Urine <2.0 mg/dL (<2.0); WBC,Urine 91 /hpf (0-5)
[2022-10-01] MEDS ORDERED: ONDANSETRON ODT 4 MG TAB PO STA (02:48)
[2022-10-01] MEDS ORDERED: ACETAMINOPHEN TAB 500 MG TAB PO STA (02:48)
[2022-10-01 05:37] VITALS: RESP 16
[2022-10-01] MEDS ORDERED: HYDROcodone/APAP 5-325MG 1 EACH TAB PO STA (07:12)
--- NOTE | 2022-10-01 07:27 | CT ---
EXAM: CT Abdomen and Pelvis Without Intravenous Contrast CLINICAL HISTORY: ITS.REASON CT Reason: right flank pain, concern for kidney stone TECHNIQUE: Axial computed tomography images of the abdomen and pelvis without intravenous contrast. CTDI is 49.7 mGy and DLP is 2881.8 mGy-cm. This CT exam was performed using one or more of the following dose reduction techniques: automated exposure control, adjustment of the mA and/or kV according to patient size, and/or use of iterative reconstruction technique. COMPARISON: No relevant prior studies available. FINDINGS: Limitations: Limited evaluation in the absence of contrast. Lung bases: Unremarkable. No mass. No consolidation. ABDOMEN: Liver: Hepatic steatosis. Gallbladder and bile ducts: Unremarkable. No calcified stones. No ductal dilation. Pancreas: Unremarkable. No ductal dilation. Spleen: Unremarkable. The spleen measures 15.7 cm in maximum dimension. Adrenals: Unremarkable. No mass. Kidneys and ureters: No evidence of radiopaque renal calculi or signs of collecting system dilatation. Stomach and bowel: No evidence of bowel obstruction. No mucosal thickening. PELVIS: Appendix: Normal appendix. Bladder: Diffuse bladder wall thickening which may relate to underdistention. Cystitis is less likely. Consider correlation with laboratory values. No stones. Reproductive: Unremarkable as visualized. ABDOMEN and PELVIS: Intraperitoneal space: Unremarkable. No free air. No significant fluid collection. Bones/joints: Degenerative changes in the spine. Flowing osteophyte formations in the spine compatible with diffuse idiopathic skeletal hyperostosis (DISH). No acute fracture. No dislocation. Soft tissues: Umbilical hernia containing fat. Vasculature: Unremarkable. No abdominal aortic aneurysm. Lymph nodes: Unremarkable. No enlarged lymph nodes. IMPRESSION: 1. No evidence of radiopaque renal calculi or signs of collecting system dilatation. 2. Diffuse bladder wall thickening which may relate to underdistention. Cystitis is less likely. Consider correlation with laboratory values. 3. No other acute findings. 4. Incidental findings as described.
[2022-10-01] MEDS ORDERED: CIPROFLOXACIN HCL 500 MG TAB PO STA (07:32)
[2022-10-01] MEDS ORDERED: NITROFURANTOIN MONOHYD/M-CRYST 100 MG CAP PO STA (07:32)
[2022-10-01 07:46] VITALS: BP 131/76; PULSE 81; TEMP 98
== END 2022-10-01 07:46 | disposition home or self-care (01) ==
LOC: EC 22:57
DX: N39.0 Urinary tract infection, site not specified (principal); E07.9 Disorder of thyroid, unspecified; E11.9 Type 2 diabetes mellitus without complications; J45.909 Unspecified asthma, uncomplicated; F41.9 Anxiety disorder, unspecified; F32.A Depression, unspecified; Z79.890 Hormone replacement therapy; Z79.899 Other long term (current) drug therapy; Z88.0 Allergy status to penicillin; Z88.1 Allergy status to other antibiotic agents; Z88.2 Allergy status to sulfonamides; Z88.8 Allergy status to other drugs, medicaments and biological substances
CPT/HCPCS: 36415; 74176; 80053; 81001; 81025; 85027; 99284

== ENCOUNTER → 2024-01-08 | Outpatient (CLI) | payer OTHER ==
--- NOTE | 2024-01-08 08:11 | XR ---
EXAMINATION TYPE: XR lumbosacral spine min 4V DATE OF EXAM: 01/08/2024 7:27 AM CLINICAL INDICATION: Female, 38 years old with history of M54.50 Lumbar pain; [facility] COMPARISON: None TECHNIQUE: XR lumbosacral spine min 4V - Frontal, lateral , bilateral oblique and coned in L5-S1 late ral views of the spine. FINDINGS: No evidence of any acute osseous pathology. No evidence of loss of vertebral body height i s seen. There is normal alignment of the lumbar vertebral bodies. Mild scattered disc space narrowing . Multilevel marginal osteophyte formation throughout the visualized spine. There is facet joint arth ropathy throughout the spine. Scattered at least mild neural foraminal stenosis. IMPRESSION: 1. No acute fracture. 2. Moderate multilevel disc degeneration. [facility], , 01/08/2024 8:09 AM
--- NOTE | 2024-01-08 08:12 | XR ---
EXAMINATION TYPE: XR cervical spine comp DATE OF EXAM: 01/08/2024 7:27 AM CLINICAL INDICATION: Female, 38 years old with history of M54.2 cervical pain; [facility] COMPARISON: 11/22/2020 TECHNIQUE: The cervical spine was imaged in frontal, lateral, odontoid and bilateral oblique. FINDINGS: The osseous structures show normal alignment without evidence of an acute fracture. No significant ve rtebral body osteophytes or facet joint arthropathy. The intervertebral disk spaces are preserved. Pe dicles are intact. Soft tissues are within normal limits. The odontoid appears intact. IMPRESSION: No fracture or dislocation. [facility], , 01/08/2024 8:10 AM
== END | disposition home or self-care (01) ==
LOC: RADXRMAIN 06:48
PROVIDERS: ATTEND Family Medicine
CPT/HCPCS: 72050; 72110